=== PATIENT | male | born 1955 | race African-American/Black ===

== ENCOUNTER 2017-11-08 08:24 | Emergency (ER) | payer MEDICAID, OTHER ==
[~2017-11-08] VITALS: Ht 172.7 cm; Wt 100.0 kg
[~2017-11-08 08:24] MED LIST: IBUP-238 PO; TYLE3 PO; Z.0.NO CURRENT MEDS
[2017-11-08 08:25] VITALS: BP 192/85; PULSE 101; RESP 20; TEMP 98.3; O2SAT 98
[2017-11-08 08:39] VITALS: BP 141/94; PULSE 87; RESP 18; O2SAT 98
[2017-11-08] MEDS ORDERED: CLINDAMYCIN 600 MG/DEX PREMIX 50 ML IV ONE (09:00)
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
[2017-11-08 09:25] LABS: AUTOMATED NEUTROPHIL # 3.3 TH/MM3 (1.8-7.7); BASOPHIL # 0.1 TH/MM3 (0-0.2); BASOPHIL % 1.1 % (0.0-2.0); EOSINOPHIL # 0.2 TH/MM3 (0-0.4); EOSINOPHIL % 4.3 % (0.0-4.0); HEMATOCRIT 46.7 % (39.0-51.0); HEMOGLOBIN 16.4 GM/DL (13.0-17.0); LYMPH % 22.9 % (9.0-44.0); LYMPHOCYTE # 1.3 TH/MM3 (1.0-4.8); MEAN CELL VOLUME 87.8 FL (80.0-100.0); MEAN CORPUSCULAR HEMOGLOBIN 30.9 PG (27.0-34.0); MEAN CORPUSCULAR HGB CONC 35.2 % (32.0-36.0); MEAN PLATELET VOLUME 7.8 FL (7.0-11.0); MONO % 11.4 % (0.0-8.0); MONOCYTE # 0.6 TH/MM3 (0-0.9); NEUT % 60.3 % (16.0-70.0); PLATELET COUNT 185 TH/MM3 (150-450); RED BLOOD COUNT 5.33 MIL/MM3 (4.50-5.90); RED CELL DISTRIBUTION WIDTH 13.1 % (11.6-17.2); WHITE BLOOD COUNT 5.5 TH/MM3 (4.0-11.0)
[2017-11-08 09:41] LABS: BICARBONATE 23.3 MEQ/L (21.0-32.0); CALCIUM 8.7 MG/DL (8.5-10.1); CREATININE 1.1 MG/DL (0.60-1.30)
[2017-11-08] MEDS ORDERED: IOHEXOL 350 MG/ML 10 ML VIAL (for RAD DIAG) IVCONTRAST ONE (10:33)
--- NOTE | 2017-11-08 10:46 | RADRPT ---
EXAM DATE/TIME: 11/08/2017 10:20 [facility] COMPARISON: No previous studies available for comparison. INDICATIONS : Pain and edema on left side of face. IV CONTRAST: 50 cc Omnipaque 350 (iohexol) IV RADIATION DOSE: 48.55 CTDIvol (mGy) MEDICAL HISTORY : None SURGICAL HISTORY : None. ENCOUNTER: Initial ACUITY: 1 day PAIN SCALE: 10/10 LOCATION: Left facial TMJ and Mastoid area TECHNIQUE: Volumetric scanning of the facial bones was performed. Using automated exposure control and adjustme nt of the mA and/or kV according to patient size, radiation dose was kept as low as reasonably achiev able to obtain optimal diagnostic quality images. DICOM format image data is available electronicall y for review and comparison. FINDINGS: Examination of the skull base demonstrates no evidence of deep infiltrating mucosal lesion. The oroph arynx, hypopharynx, glottic and subglottic airway demonstrate no abnormality. Residual OR a large med ical left parotid gland with subcutaneous edema characteristic of inflammatory process. No stones are identified. This could be viral or bacterial. There is no evidence of abscess. There slightly enlarg ed lymph nodes in group 2 likely reactive. The thyroid gland demonstrates no abnormality. There is benign-appearing mucosal disease in the maxil fercho antra bilaterally. There is bilateral frontal sinusitis. Ethmoid and sphenoid sinusitis is prese nt. There is obstruction of the frontal recesses ethmoid infundibula and sphenoethmoidal recesses tenzin aterally. CONCLUSION: 1. Diffuse enlargement of the left parotid gland characteristic of parotitis without evidence of absc ess 2. Pansinusitis Aniket Loza MD on November 08, 2017 at 10:39 Board Certified Radiologist. This report was verified electronically.
[2017-11-08] MEDS ORDERED: CLIN150C14 PO (11:35)
[2017-11-08] MEDS ORDERED: TYLE325T PO (11:35)
[2017-11-08] MEDS ORDERED: CIPR500T2 PO (11:35)
== END 2017-11-08 11:56 | disposition home or self-care (01) ==
LOC: NEPC 08:24
DX: K11.20 Sialoadenitis, unspecified (principal); J32.4 Chronic pansinusitis
CPT/HCPCS: 70487; 80048; 85025; 96374; 99285; Q9967

== ENCOUNTER 2017-12-13 08:32 | Emergency (ER) | payer MEDICAID ==
[~2017-12-13] VITALS: Ht 172.7 cm; Wt 104.0 kg
[~2017-12-13 08:32] MED LIST changes: +CIPR500T2 PO; +CLIN150C14 PO; -IBUP-238 PO; -TYLE3 PO; +TYLE325T PO; -Z.0.NO CURRENT MEDS
[2017-12-13 08:34] VITALS: BP 151/93; PULSE 85; RESP 14; TEMP 97.9; O2SAT 97
[2017-12-13] MEDS ORDERED: TRAM50TA PO (09:15)
[2017-12-13] MEDS ORDERED: PRED10PA PO (09:15)
--- NOTE | 2017-12-13 09:15 | PD ---
HPI Chief Complaint: Fall Time Seen by Provider: 09:01 Travel History International Travel<30 days: No Contact w/Intl Traveler<30days: No Traveled to known affect area: No History of Present Illness HPI This is a 62-year-old male who presents to the emergency department with left foot pain worse in his great toe, constant, moderate severity, described as a burning that has been going on for 1 week making it difficult for him to walk. He also has some chronic pain in his right thumb where he has had surgery before. He says he does have a history of gout. He has been trying over-the- counter medicines but they have been bothering his stomach. He denies any fevers or chills. He says this feels similar to when he had a gout attack before. PFSH Past Medical History Arthritis: No Asthma: No Blood Disorders: No Heart Rhythm Problems: No Cancer: No Cardiac Catheterization: No Cardiovascular Problems: No High Cholesterol: No Congestive Heart Failure: No COPD: No Cerebrovascular Accident: No Diabetes: No Genitourinary: No Hypertension: No Immune Disorder: No Musculoskeletal: Yes Neurologic: No Psychiatric: No Reproductive: No Respiratory: No Immunizations Current: Yes Myocardial Infarction: No Seizures: No Thyroid Disease: No PNEUMOCCOCAL Vaccine (Year): 1 Past Surgical History AICD: No Coronary Artery Bypass Graft: No Genitourinary Surgery: No Pacemaker: No Other Surgery: No Social History Alcohol Use: Yes (6 PACK A WEEK) Tobacco Use: No Substance Use: No Allergies-Medications (Allergen,Severity, Reaction): Coded Allergies: No Known Allergies (Verified Allergy, Unknown, 12/13/17) Reported Meds & Prescriptions Reported Meds & Active Scripts Active Tylenol (Acetaminophen) 325 Mg Tab 650 Mg PO Q6H PRN Ciprofloxacin (Ciprofloxacin HCl) 500 Mg Tab 500 Mg PO BID 10 Days Clindamycin (Clindamycin HCl) 150 Mg Cap 450 Mg PO Q8HR 10 Days Review of Systems Except as stated in HPI: all other systems reviewed are Neg Physical Exam Narrative GENERAL:Well appearing, no acute distress SKIN: Focused skin assessment warm and dry. HEAD: Atraumatic. Normocephalic. EYES: Pupils equal and round. No injection or drainage. ENT: Moist mucous membranes NECK: Trachea midline. CARDIOVASCULAR: Regular rate and rhythm. No murmur appreciated. RESPIRATORY: Clear to auscultation. Breath sounds equal bilaterally. GASTROINTESTINAL: Abdomen soft, non-tender, nondistended. MUSCULOSKELETAL: Erythema and warmth of the left first MTP joint with pain with palpation of the dorsal distal aspect of the left foot NEUROLOGICAL: Awake and alert. No obvious cranial nerve deficits. Moving all extremities PSYCHIATRIC: Appropriate mood and affect; insight and judgment normal. Data Data Last Documented VS Vital Signs Date Time Temp Pulse Resp B/P (MAP) Pulse Ox O2 Delivery O2 Flow Rate FiO2 12/13/17 08:34 97.9 85 14 151/93 (112) 97 MDM Medical Decision Making Medical Screen Exam Complete: Yes Emergency Medical Condition: Yes Differential Diagnosis Gout, septic arthritis, osteoarthritis, cellulitis Narrative Course This is a 62-year-old male who has a history of gout who presents with signs and symptoms classic for gouty arthritis in the left first MTP. Patient has reassuring vital signs and is otherwise well-appearing. Patient will be discharged home on prednisone and pain control. He was also supplied crutches. Diagnosis Primary Impression: Gout attack Qualified Codes: M10.072 - Idiopathic gout, left ankle and foot Patient Instructions: General Instructions Additional Instructions: If you develop fever, increasing redness, warmth, or severe pain return to the emergency department immediately. Med/Other Pt SpecificInfo: Prescription(s) given Scripts Tramadol (Tramadol) 50 Mg Tab 50 MG PO Q6H Y for PAIN, #15 TAB 0 Refills Prov: Jessica Muñoz MD 12/13/17 Prednisone (21) 10 mg tab Dose Pack (Prednisone (21) 10 mg tab Dose Pack) 10 Mg Pack 10 MG PO DIRECTED for Inflammation, #1 DSPK 0 Refills Prov: Jessica Muñoz MD 12/13/17 Disposition: 01 DISCHARGE HOME Condition: Stable Jessica Muñoz MD Dec 13, 2017 09:15
[2017-12-13] MEDS ORDERED: methylPREDNISolone SOD SUCC 125 MG/2 ML VIAL IM ONE (09:30)
[2017-12-13] MEDS ORDERED: traMADol HCL 50 MG TAB PO ONE (09:30)
[2017-12-13 09:43] VITALS: BP 184/97
== END 2017-12-13 10:01 | disposition home or self-care (01) ==
LOC: NEPD 08:32
DX: M10.072 Idiopathic gout, left ankle and foot (principal)
CPT/HCPCS: 96372; 99283; E0113; J2930